=== PATIENT | female | born 1995 | race Caucasian/White ===

== ENCOUNTER 2017-11-14 17:47 | Emergency (ER) | payer SELFPAY ==
[~2017-11-14] VITALS: Ht 170.2 cm; Wt 63.5 kg
[2017-11-14 21:25] VITALS: BP 119/70
== END 2017-11-14 22:55 | disposition home or self-care (01) ==
LOC: ER 17:53
DX: S92.515A Nondisplaced fracture of proximal phalanx of left lesser toe(s), initial encounter for closed fracture (principal); W22.8XXA Striking against or struck by other objects, initial encounter; Y93.89 Activity, other specified; Y99.8 Other external cause status; Y92.89 Other specified places as the place of occurrence of the external cause
CPT/HCPCS: 73630; 99284; L3260